=== PATIENT | female | born 1970 | race African-American/Black ===

== ENCOUNTER 2017-03-27 10:23 | Emergency (ER) | payer OTHER ==
[~2017-03-27 10:23] MED LIST: EPIP0.3I IM; HYDR-2952 PO; IBUP-238 PO; IBUP800T23 PO; RANI1TAB5 PO; ROBA750T PO
[2017-03-27 10:25] VITALS: BP 104/64; PULSE 94; RESP 20; TEMP 98.7; O2SAT 100
--- NOTE | 2017-03-27 12:11 | PD ---
Physical Exam Date Seen by Provider: Mar 27, 2017 Time Seen by Provider: 12:09 Narrative 46 y/o female here with several days of urinary burning and itching. No fever, flank pain or vaginal discharge noted. Denies . Patients VS stable. Awaiting Bed Placement. Data Data Last Documented VS Vital Signs Date Time Temp Pulse Resp B/P Pulse Ox O2 Delivery O2 Flow Rate FiO2 03/27/17 10:28 03/27/17 10:25 98.7 94 20 100 Room Air Orders Urinalysis - C+S If Indicated (03/27/17 10:54) Ed Urine Pregnancytest Poc (03/27/17 10:54) MDM Medical Record Reviewed: Yes Supervised Visit with LIBERTAD: Yes Condition: Stable Warren Prieto Mar 27, 2017 12:11
[2017-03-27 12:17] LABS: BLOOD, URINE NEG (NEG); GLUCOSE,URINE NEG (NEG); KETONE, URINE NEG (NEG); NITRITE,URINE NEG (NEG); PH, URINE 5.5 (5.0-8.5); URINE COLOR LIGHT-YELLOW (YELLW/STRAW)
[2017-03-27 12:36] LABS: COMMENT (UR) CULT NOT INDICATED; COMMENT2 (UR) CULT NOT INDICATED; CULTURE IF INDICATED CULT NOT INDICATED; SQUAMOUS EPITHELIAL CELL URINE 0-5 /hpf (0-5); WBC, URINE 0-2 /hpf (0-5)
== END 2017-03-27 13:11 | disposition left against medical advice (07) ==
LOC: NED 10:23
DX: R30.0 Dysuria (principal); Z53.21 Procedure and treatment not carried out due to patient leaving prior to being seen by health care provider
CPT/HCPCS: 81001; 84703; 99283

== ENCOUNTER 2017-07-19 14:15 | Emergency (ER) | payer OTHER ==
[~2017-07-19] VITALS: Ht 172.7 cm; Wt 75.0 kg
[2017-07-19 14:18] VITALS: BP 113/57; PULSE 84; RESP 16; TEMP 98.4; O2SAT 99
--- NOTE | 2017-07-19 14:22 | PD ---
Physical Exam Time Seen by Provider: 14:20 Narrative 46-year-old female presents with complaint of right arm and right upper back pain after lifting a seen back 2 days ago. Reports occasional numbness and tingling in her right hand. Patient seen in triage. Vital signs reviewed. Patient taken to medical bed. Data Data Last Documented VS Vital Signs Date Time Temp Pulse Resp B/P (MAP) Pulse Ox O2 Delivery O2 Flow Rate FiO2 07/19/17 14:18 98.4 84 16 113/57 (11) 99 MDM Supervised Visit with LIBERTAD: Sujatha Patterson Jul 19, 2017 14:22
--- NOTE | 2017-07-19 14:48 | PD ---
HPI Chief Complaint: Pain: Acute or Chronic Time Seen by Provider: 14:37 Travel History International Travel<30 days: No Contact w/Intl Traveler<30days: No Traveled to known affect area: No History of Present Illness HPI 46-year-old Afro-[place]ian female presents the emergency department after lifting 4 sandbags 2 days ago, she's had progressively worsening right upper posterior shoulder pain. The pain is worse first thing in the morning. It does tend to radiate down the right arm. She has mild weakness secondary to pain but no obvious loss of function. Pain is currently about an 8 out of 10. It is worse with certain movements. Patient has multiple allergies including Topamax, Flagyl, meloxicam, clavulanic acid, citrus, and amoxicillin. PFSH Past Medical History Hx Anticoagulant Therapy: No Cancer: No Cardiovascular Problems: No Chemotherapy: No Cerebrovascular Accident: No Diabetes: No Hepatitis: No Hiatal Hernia: No Respiratory: No Thyroid Disease: No : 2 Para: 2 Past Surgical History Gynecologic Surgery: Yes () Pacemaker: No Social History Alcohol Use: No Tobacco Use: Yes (5 CIGS/DAY) Substance Use: No Allergies-Medications (Allergen,Severity, Reaction): Coded Allergies: amoxicillin (Unverified Allergy, Severe, 06/07/17) hives clavulanic acid (Unverified Allergy, Severe, 06/07/17) hives meloxicam (Unverified Allergy, Severe, 06/07/17) hives metronidazole (Unverified Allergy, Severe, 06/07/17) hives topiramate (Unverified Allergy, Severe, 06/07/17) hives Uncoded Allergies: citrus (Allergy, Severe, anaphylaxis, 10/14/11) Reported Meds & Prescriptions Reported Meds & Active Scripts Active Robaxin (Methocarbamol) 750 Mg Tab 750 Mg PO TID PRN Ibuprofen 800 Mg Tab 800 Mg PO TID PRN [id number] Mg 800 Mg Tab 800 Mg PO TIDPRN FOR PAIN Reported Lortab 7.02/5001 Tab 7.5 Mg/500 Mg Tab 1-2 Tab PO Q4HPRN [id number] Mg 800 Mg Tab 800 Mg PO TIDPRN Epipen0.3 Mg 0.3 Mg Inj 0.3 Mg IM DIRECTED GIVE IM IN THIGH, MAY REPEAT IF NEEDED Z.0.ranitidine [id number] 75 Mg Tab 75 Mg PO PRN Review of Systems Except as stated in HPI: all other systems reviewed are Neg General / Constitutional: No: Fever Eyes: No: Visual changes HENT: No: Headaches Cardiovascular: No: Chest Pain or Discomfort Respiratory: No: Shortness of Breath Gastrointestinal: No: Abdominal Pain Genitourinary: No: Dysuria Musculoskeletal: Positive: Myalgias, Limited ROM, Pain Skin: No Rash Neurologic: No: Weakness Psychiatric: No: Depression Endocrine: No: Polydipsia Hematologic/Lymphatic: No: Easy Bruising Physical Exam Narrative GENERAL: Patient appears in mild distress. SKIN: Warm and dry. Normal color. Normal turgor. No rash. HEAD: Atraumatic. Normocephalic. EYES: Pupils equal and round. No scleral icterus. No injection or drainage. ENT: No nasal bleeding or discharge. Mucous membranes pink and moist. Pharynx is clear. Airway is patent. NECK: Trachea midline. No bony tenderness or step-off. Neck range of motion is full and supple. CARDIOVASCULAR: Regular rate and rhythm. RESPIRATORY: No accessory muscle use. Clear to auscultation. Breath sounds equal bilaterally. MUSCULOSKELETAL: Extremities without clubbing, cyanosis, or edema. No obvious deformities. Patient is soft tissue tenderness along the right shoulder girdle with obvious muscle spasm palpable along the medial scapular border as well as a levator scapular region. Patient also tender in the anterior and posterior deltoid region. Range of motion is intact but somewhat limited secondary to pain. Neurovascular exam is normal distally to the right upper extremity. NEUROLOGICAL: Awake and alert. No obvious cranial nerve deficits. Motor grossly within normal limits. Five out of 5 muscle strength in the arms and legs. Normal speech. PSYCHIATRIC: Appropriate mood and affect; insight and judgment normal. Data Data Last Documented VS Vital Signs Date Time Temp Pulse Resp B/P (MAP) Pulse Ox O2 Delivery O2 Flow Rate FiO2 07/19/17 14:18 98.4 84 16 113/57 (54) 99 MDM Medical Decision Making Medical Screen Exam Complete: Yes Emergency Medical Condition: Yes Differential Diagnosis Right shoulder strain. Muscle spasm. Rotator cuff injury. Narrative Course Patient is felt to have a muscle strain to the right shoulder. Radiographic imaging is not felt warranted based on my history and physical today. Patient is to take ibuprofen 800 mg 3 times daily with food #30. Patient is to take acetaminophen 500 mg 2 tabs every 8 hours as needed for pain. #60. Patient is to take Flexeril 10 mg up to 3 times daily for muscle spasm. #15. Work note is given with restrictions for the next 2 days. Patient is to use heat, ice, and gentle stretching as discussed. Patient to follow with primary care physician or return if worsening symptoms develop. Diagnosis Primary Impression: Strain of shoulder, right Qualified Codes: S46.911A - Strain of unspecified muscle, fascia and tendon at shoulder and upper arm level, right arm, initial encounter Referrals: Primary Care Physician Patient Instructions: General Instructions, Shoulder Sprain (ED) Departure Forms: Work Release Enter return to work date: Jul 20, 2017 Special Instructions: Limited use of right arm for the next 3 days. Additional Instructions: Patient is felt to have a muscle strain to the right shoulder. Radiographic imaging is not felt warranted based on my history and physical today. Patient is to take ibuprofen 800 mg 3 times daily with food #30. Patient is to take acetaminophen 500 mg 2 tabs every 8 hours as needed for pain. #60. Patient is to take Flexeril 10 mg up to 3 times daily for muscle spasm. #15. Work note is given with restrictions for the next 2 days. Patient is to use heat, ice, and gentle stretching as discussed. Patient to follow with primary care physician or return if worsening symptoms develop. Med/Other Pt SpecificInfo: Prescription(s) given Scripts Cyclobenzaprine (Flexeril) 10 Mg Tab 10 MG PO TID for Muscle Spasm, #15 TAB 0 Refills Prov: Reed Watkins MD 07/19/17 Acetaminophen (Mapap Extra Strength) 500 Mg Tab 1000 MG PO Q8HR Y for PAIN, #60 TAB 0 Refills Prov: Reed Watkins MD 07/19/17 Ibuprofen (Ibuprofen) 800 Mg Tab 800 MG PO Q8H Y for Pain/Inflammation, #30 TAB 0 Refills Prov: Reed Watkins MD 07/19/17 Disposition: 01 DISCHARGE HOME Condition: Stable Warren Prieto Jul 19, 2017 14:47
[2017-07-19] MEDS ORDERED: IBUP800T23 PO (14:49)
[2017-07-19] MEDS ORDERED: CYCL1TAB29 PO (14:49)
[2017-07-19] MEDS ORDERED: MAPA500T13 PO (14:49)
== END 2017-07-19 15:22 | disposition home or self-care (01) ==
LOC: NEPK 14:15
DX: S46.911A Strain of unspecified muscle, fascia and tendon at shoulder and upper arm level, right arm, initial encounter (principal); X50.0XXA Overexertion from strenuous movement or load, initial encounter
CPT/HCPCS: 99283

== ENCOUNTER 2017-12-07 09:09 | Emergency (ER) | payer OTHER ==
[~2017-12-07] VITALS: Ht 172.7 cm; Wt 70.0 kg
[~2017-12-07 09:09] MED LIST changes: +CYCL10TA PO; +IBUP1TAB7 PO; +MAPA500T13 PO
[2017-12-07 09:11] VITALS: BP 105/64; PULSE 85; RESP 20; TEMP 98.5; O2SAT 100
[2017-12-07 10:12] LABS: AUTOMATED NEUTROPHIL # 3.7 TH/MM3 (1.8-7.7); BASOPHIL % 0.4 % (0.0-2.0); EOSINOPHIL # 0.1 TH/MM3 (0-0.4); EOSINOPHIL % 1.4 % (0.0-4.0); HEMATOCRIT 34.3 % (35.0-46.0); HEMOGLOBIN 11.4 GM/DL (11.6-15.3); LYMPH % 30.8 % (9.0-44.0); LYMPHOCYTE # 1.9 TH/MM3 (1.0-4.8); MEAN CELL VOLUME 84.6 FL (80.0-100.0); MEAN CORPUSCULAR HEMOGLOBIN 28.1 PG (27.0-34.0); MEAN CORPUSCULAR HGB CONC 33.2 % (32.0-36.0); MEAN PLATELET VOLUME 7.7 FL (7.0-11.0); MONO % 8.7 % (0.0-8.0); MONOCYTE # 0.5 TH/MM3 (0-0.9); NEUT % 58.7 % (16.0-70.0); PLATELET COUNT 226 TH/MM3 (150-450); RED BLOOD COUNT 4.05 MIL/MM3 (4.00-5.30); RED CELL DISTRIBUTION WIDTH 13.9 % (11.6-17.2); WHITE BLOOD COUNT 6.2 TH/MM3 (4.0-11.0)
[2017-12-07 10:16] LABS: INTERNATIONAL NORMALIZED RATIO 1.1 RATIO; PROTHROMBIN TIME - PATIENT 10.8 SEC (9.8-11.6)
[2017-12-07] MEDS ORDERED: CITA20TA4 PO (10:28)
[2017-12-07] MEDS ORDERED: TRAZ50TA12 PO (10:28)
[2017-12-07] MEDS ORDERED: HYDR50CA PO (10:28)
[2017-12-07 10:43] LABS: BACTERIA, URINE MANY /hpf; BILIRUBIN, URINE NEG (NEG); BLOOD, URINE SMALL (NEG); GLUCOSE,URINE NEG (NEG); KETONE, URINE TRACE mg/dL (NEG); MUCUS URINE MOD /lpf (OCC); NITRITE,URINE NEG (NEG); SQUAMOUS EPITHELIAL CELL URINE 54 /hpf (0-5); URINE COLOR YELLOW (YELLW/STRAW); URINE LEUKOCYTE ESTERASE LARGE (NEG)
[2017-12-07 11:09] LABS: ALBUMIN 3.6 GM/DL (3.4-5.0); AST (GOT) 6 U/L (15-37); BICARBONATE 24.5 MEQ/L (21.0-32.0); BLOOD UREA NITROGEN 11 MG/DL (7-18); CALCIUM 8.7 MG/DL (8.5-10.1); CHLORIDE 109 MEQ/L (98-107); GLOMERULAR FILTRATION RATE 64 ML/MIN (>89); GLUCOSE,RANDOM 94 MG/DL (74-106); SODIUM (NA) 140 MEQ/L (136-145)
[2017-12-07 11:10] LABS: ACETAMINOPHEN LESS THAN 2.0 MCG/ML (10.0-30.0); ALT (GPT) 11 U/L (10-53)
[2017-12-07 11:12] LABS: ALKALINE PHOSPHATASE 36 U/L (45-117); TOTAL BILIRUBIN ADULT 0.7 MG/DL (0.2-1.0); TOTAL PROTEIN 7.3 GM/DL (6.4-8.2)
--- NOTE | 2017-12-07 11:18 | PD ---
HPI . Shaking Chief Complaint: Medical Clearance Time Seen by Provider: 10:31 Travel History International Travel<30 days: No Contact w/Intl Traveler<30days: No History of Present Illness HPI Patient presents with chief complaint of shaking. Onset was 3 days ago. Symptoms have been persistent since that time. The patient is here with her sister. Her sister believes that she is coming down off of opiate abuse. The sister reports that she has a history of this. The patient reportedly took illicitly obtained Lortab, 10-12 over the course of the weekend. She did not take them all at once. Since the weekend, she has been fatigued and confined to her bed. She has been tremulous. She started having loose stools yesterday. There have been no modifying factors. Her symptoms are mild. PFSH Past Medical History Hx Anticoagulant Therapy: No Cancer: No Cardiovascular Problems: No Chemotherapy: No Cerebrovascular Accident: No Diabetes: No Diminished Hearing: No GERD: Yes Hepatitis: No Hiatal Hernia: No Medical other: Yes (low back muscle spasms) Respiratory: No Thyroid Disease: No ?: Not LMP: 11/25/17 : 2 Para: 2 Tubal Ligation: Yes Past Surgical History Section: Yes (x 1) Gynecologic Surgery: Yes () Pacemaker: No Social History Alcohol Use: No Tobacco Use: Yes (5 CIGS/DAY) Substance Use: No Allergies-Medications (Allergen,Severity, Reaction): Coded Allergies: amoxicillin (Unverified Allergy, Severe, 07/19/17) hives clavulanic acid (Unverified Allergy, Severe, 07/19/17) hives meloxicam (Unverified Allergy, Severe, 07/19/17) hives metronidazole (Unverified Allergy, Severe, 07/19/17) hives topiramate (Unverified Allergy, Severe, 07/19/17) hives Uncoded Allergies: citrus (Allergy, Severe, anaphylaxis, 10/14/11) Reported Meds & Prescriptions Reported Meds & Active Scripts Active Reported Hydroxyzine Pamoate 50 Mg Cap 50 Mg PO BID Citalopram (Citalopram Hydrobromide) 20 Mg Tab 20 Mg PO DAILY Trazodone (Trazodone HCl) 50 Mg Tab 50 Mg PO HS Review of Systems Except as stated in HPI: all other systems reviewed are Neg General / Constitutional: Positive: Other (fatigue, somnolence), No: Fever, Chills Gastrointestinal: Positive: Diarrhea Neurologic: Positive: Tremor Psychiatric: Positive: Depression, Substance Abuse Physical Exam Narrative GENERAL: Patient is lying in the stretcher with her eyes closed. She does speak when spoken to. History is obtained from both the patient and her sister. SKIN: warm/dry. Normal color and turgor. HEAD: Normocephalic. Atraumatic. EYES: Pupils equal and round. No scleral icterus. No injection or drainage. ENT: No nasal bleeding or discharge. Mucous membranes pink and moist. NECK: Trachea midline. Full range of motion without pain.. CARDIOVASCULAR: Regular rate and rhythm. Heart sounds normal. RESPIRATORY: No accessory muscle use. Clear to auscultation. Breath sounds equal bilaterally. GASTROINTESTINAL: Abdomen soft. Nontender. Bowel sounds present. Nondistended. MUSCULOSKELETAL: No obvious deformities. NEUROLOGICAL: Awake and alert. No obvious cranial nerve deficits. Motor grossly within normal limits. Normal speech. Mild, brief, occasional tremor. PSYCHIATRIC: Appropriate mood and affect; insight and judgment normal. Data Data Last Documented VS Vital Signs Date Time Temp Pulse Resp B/P (MAP) Pulse Ox O2 Delivery O2 Flow Rate FiO2 12/07/17 09:11 98.5 85 20 105/64 (78) 100 Orders Orders Tylenol (Acetaminophen) (12/07/17 09:37) Salicylates (Aspirin) (12/07/17 09:37) Complete Blood Count With Diff (12/07/17 09:37) Basic Metabolic Panel (Bmp) (12/07/17 09:37) Comprehensive Metabolic Panel (12/07/17 09:37) Coag Profile (12/07/17 09:37) Urinalysis - C+S If Indicated (12/07/17 09:37) Drug Screen, Random Urine (12/07/17 09:37) Ed Urine Pregnancytest Poc (12/07/17 09:37) Electrocardiogram (12/07/17 ) Alcohol (Ethanol) (12/07/17 09:37) Influenzae A/B Antigen (12/07/17 10:29) Urine Culture (12/07/17 09:50) Ceftriaxone Inj (Rocephin Inj) (12/07/17 11:30) Sodium Chlor 0.9% 1000 Ml Inj (Ns 1000 M (12/07/17 11:30) Labs Laboratory Tests Test 12/07/17 09:50 White Blood Count 6.2 TH/MM3 Red Blood Count 4.05 MIL/MM3 Hemoglobin 11.4 GM/DL Hematocrit 34.3 % Mean Corpuscular Volume 84.6 FL Mean Corpuscular Hemoglobin 28.1 PG Mean Corpuscular Hemoglobin Concent 33.2 % Red Cell Distribution Width 13.9 % Platelet Count 226 TH/MM3 Mean Platelet Volume 7.7 FL Neutrophils (%) (Auto) 58.7 % Lymphocytes (%) (Auto) 30.8 % Monocytes (%) (Auto) 8.7 % Eosinophils (%) (Auto) 1.4 % Basophils (%) (Auto) 0.4 % Neutrophils # (Auto) 3.7 TH/MM3 Lymphocytes # (Auto) 1.9 TH/MM3 Monocytes # (Auto) 0.5 TH/MM3 Eosinophils # (Auto) 0.1 TH/MM3 Basophils # (Auto) 0.0 TH/MM3 CBC Comment DIFF FINAL Differential Comment Prothrombin Time 10.8 SEC Prothromb Time International Ratio 1.1 RATIO Activated Partial Thromboplast Time 24.3 SEC Urine Color YELLOW Urine Turbidity CLOUDY Urine pH 5.0 Urine Specific [place] 1.025 Urine Protein TRACE mg/dL Urine Glucose (UA) NEG mg/dL Urine Ketones TRACE mg/dL Urine Occult Blood SMALL Urine Nitrite NEG Urine Bilirubin NEG Urine Urobilinogen LESS THAN 2.0 MG/DL Urine Leukocyte Esterase LARGE Urine RBC 4 /hpf Urine WBC 15 /hpf Urine Squamous Epithelial Cells 54 /hpf Urine Bacteria MANY /hpf Urine Mucus MOD /lpf Microscopic Urinalysis Comment CULTURE INDICATED Blood Urea Nitrogen 11 MG/DL Creatinine 1.10 MG/DL Random Glucose 94 MG/DL Total Protein 7.3 GM/DL Albumin 3.6 GM/DL Calcium Level 8.7 MG/DL Alkaline Phosphatase 36 U/L Aspartate Amino Transf (AST/SGOT) 6 U/L Alanine Aminotransferase (ALT/SGPT) 11 U/L Total Bilirubin 0.7 MG/DL Sodium Level 140 MEQ/L Potassium Level 3.5 MEQ/L Chloride Level 109 MEQ/L Carbon Dioxide Level 24.5 MEQ/L Anion Gap 7 MEQ/L Estimat Glomerular Filtration Rate 64 ML/MIN Salicylates Level 1.9 MG/DL Acetaminophen Level LESS THAN 2.0 MCG/ML Ethyl Alcohol Level LESS THAN 3 MG/DL MDM Medical Decision Making Medical Screen Exam Complete: Yes Emergency Medical Condition: Yes Differential Diagnosis Differential diagnosis includes viral syndrome, opiate withdrawal, psychiatric disorder Narrative Course Patient presents with lethargy, somnolence, tremors and loose stools for the last 3 days. Her sister is concerned that she is withdrawing from opiates. The patient is not tachycardic or hypertensive. CBC & BMP Diagram 12/07/17 09:50 Total Protein 7.3, Albumin 3.6, Calcium Level 8.7, Alkaline Phosphatase 36 L, Aspartate Amino Transf (AST/SGOT) 6 L, Alanine Aminotransferase (ALT/SGPT) 11, Total Bilirubin 0.7 coags are normal. Tylenol and aspirin levels are neg. UA>>large LE, 4 RBCs, 15 WBCs, many bact The patient is being treated for her urinary tract infection here with Rocephin. She will be discharged on Macrobid. Diagnosis Primary Impression: Somnolence Additional Impression: Urinary tract infection Qualified Codes: N30.00 - Acute cystitis without hematuria Patient Instructions: General Instructions, Urinary Tract Infection in Women ( [place]) Med/Other Pt SpecificInfo: Prescription(s) given Scripts Nitrofurantoin Monohydrate Macrocrystals (Macrobid) 100 Mg Cap 100 MG PO BID for Infection for 5 Days, #10 CAP 0 Refills Prov: Shila Montaño MD 12/07/17 Disposition: 01 DISCHARGE HOME Condition: Stable Shila Montaño MD Dec 07, 2017 11:18
[2017-12-07] MEDS ORDERED: cefTRIAXone INJ 1,000 MG in SODIUM CHLORIDE 0.9% INJ 100 ML IV ONE (11:30)
[2017-12-07] MEDS ORDERED: SODIUM CHLOR 0.9% 1000 ML INJ 1,000 ML IV ONE (11:30)
[2017-12-07] MEDS ORDERED: MACR100C2 PO (11:55)
[2017-12-07 12:48] VITALS: BP 115/65
--- NOTE | 2017-12-07 20:08 | EKG ---
Date Performed: 12/07/2017 Time Performed: 09:46:20 PTAGE: 47 years EKG: Sinus rhythm NORMAL ECG NO PREVIOUS TRACING DOCTOR: Jian Ferrer Interpretating Date/Time 12/07/2017 20:06:38
== END 2017-12-07 12:49 | disposition home or self-care (01) ==
LOC: NEPE 09:09
DX: R40.0 Somnolence (principal); N39.0 Urinary tract infection, site not specified; R19.7 Diarrhea, unspecified; M62.830 Muscle spasm of back; R25.1 Tremor, unspecified; K21.9 Gastro-esophageal reflux disease without esophagitis; F17.210 Nicotine dependence, cigarettes, uncomplicated; Z79.899 Other long term (current) drug therapy; Z88.0 Allergy status to penicillin
CPT/HCPCS: 80053; 80307; 81001; 84703; 85025; 85610; 85730; 87086; 87804; 93005; 96365; 99284; J0696; J7030